=== PATIENT | male | born 1975 | race African-American/Black ===

== ENCOUNTER 2025-02-24 06:12 | Emergency (ER) | payer OTHER ==
[~2025-02-24] VITALS: Ht 193 cm; Wt 95.0 kg
[2025-02-24 06:41] VITALS: O2SAT 98
[2025-02-24] MEDS: MORPHINE SULFATE 4 MG/ML INJ (FOR IV/IM USE) IV ONE ×2 (09:21→11:30)
[2025-02-24 09:40] LABS: BASOPHILS % 1.1 % (0.0-2.0); EOSINOPHILS % 0.6 % (0.0-5.0); HEMATOCRIT. 41.1 % (42.0-52.0); HEMOGLOBIN. 14.2 g/dL (14.0-18.0); LYMPHOCYTES % 23.3 % (20.0-50.0); MEAN CORPUSCULAR HEMOGLOBIN 34.1 pg (28.0-32.0); MEAN CORPUSCULAR HGB CONC 34.7 g/dL (31.0-37.0); MEAN CORPUSCULAR VOLUME 98.5 fL (80.0-94.0); MONOCYTES % 6.1 % (2.0-8.0); NEUTROPHILS % 68.9 % (40.0-76.0); PLATELET 299 x1000/uL (130-400); RED BLOOD CELL COUNT 4.17 mill/uL (4.7-6.1); RED CELL DISTRIBUTION WIDTH 13.8 % (11.6-14.6); WHITE BLOOD COUNT 9.7 x1000/uL (4.5-11.0)
[2025-02-24 09:47] LABS: CHLORIDE 108 mEq/L (98-107); POTASSIUM 3.3 mEq/L (3.5-5.1); SODIUM 140 mEq/L (136-145)
[2025-02-24 09:48] LABS: CALCIUM 8.5 mg/dL (8.7-10.4); CARBON DIOXIDE 25 mEq/L (21-32)
[2025-02-24 09:53] LABS: CREATININE 0.9 mg/dL (0.6-1.3); GLUCOSE 105 mg/dL (70-105); UREA NITROGEN BLOOD 11 mg/dL (9-23)
[2025-02-24] MEDS: KETOROLAC 15MG/ML VIAL IV ONE (12:07)
[2025-02-24] MEDS: CLONIDINE 0.1MG TABLET PO NR (13:24)
[2025-02-24 13:46] VITALS: BP 157/82; PULSE 90; RESP 14; TEMP 36.8; O2SAT 98
== END 2025-02-24 14:04 | disposition short-term general hospital (02) ==
LOC: ER 06:12 → CANBEDREQ 11:49 → ER 14:04
DX: M25.561 Pain in right knee (principal); M25.562 Pain in left knee; I10 Essential (primary) hypertension; R26.2 Difficulty in walking, not elsewhere classified; W10.9XXA Fall (on) (from) unspecified stairs and steps, initial encounter; Y93.89 Activity, other specified; Y92.89 Other specified places as the place of occurrence of the external cause; Y99.8 Other external cause status
CPT/HCPCS: 80048; 85025; 36415; 73560; 73700; 96374; 96375; 96376; 99285; J1885; J2270; Z7610